=== PATIENT | male | born 1985 | race Caucasian/White ===

== ENCOUNTER 2023-04-03 16:57 | Inpatient (IN) ==
[2023-04-03] MEDS ORDERED: fentaNYL citrate PF 100 MCG/2 ML VIAL IV STA (18:05)
[2023-04-03] MEDS ORDERED: SODIUM CHLORIDE 0.9% 1,000 ML IV ONE ×2 (18:05→21:46)
--- NOTE | 2023-04-03 18:08 | Emergency Department Note ---
Impression & Plan Acute right flank pain, Calculus of proximal right ureter, Hydronephrosis of right kidney ED Provider Note HISTORY OF PRESENT ILLNESS: Patient is a 38-year-old male presenting with right lower quadrant abdominal pain. History is obtained via [place] weld technician. 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 Describes the pain as constant and crampy pressure sensation. Denies any history of abdominal surgeries. Denies any nausea, vomiting or diarrhea. Pain is located in the right lower quadrant with radiation into the right low back. Denies any bowel or bladder incontinence. Denies any dysuria or hematuria. He denies any history of kidney stones. Denies any recent fevers. ROS: as above PHYSICAL EXAM: Constitutional: Patient appears in no acute distress. HENT: Head: Normocephalic and atraumatic. Eyes: EOMI, PERRL Mouth/Throat: Mucous membranes moist. Neck: Trachea midline. Neck supple. Cardiovascular: RRR, No murmurs, rubs or gallops. Intact distal pulses. Pulmonary/Chest: No respiratory distress. Breath sounds clear and equal bilaterally. No wheezes or rales. Abdominal: Abdomen soft, no tenderness, rebound or guarding. Musculoskeletal: No edema, tenderness or deformity noted. Skin: Warm and dry. No rash, erythema, pallor or cyanosis Psychiatric: Appropriate mood and affect for situation. Neurological: Alert and keenly responsive. CN II-XII grossly intact, moving all extremities equally and fully. MDM: - Vitals signs showed hypertension - History obtained via patient via [place] weld technician. Patient presents with right lower quadrant abdominal pain. Patient reports pain started acutely earlier this evening. He denies any history of abdominal surgeries. Locates pain in the right lower quadrant with radiation to the right low back. Reports is a constant crampy pressure sensation. Denies any nausea, vomiting or diarrhea. Denies any dysuria or hematuria. Denies any fevers. - Chronic conditions affecting care: none - Differential diagnoses include, but are not limited to: appendicitis; diverticulitis; testicular torsion; ureteral calculi - Order placed for continuous cardiac monitoring. At this time, monitor showed rate of 76 bpm with normal sinus rhythm, per my interpretation. - External medical records reviewed. - Laboratory workup interpreted by myself showed normal WBC; stable electrolytes; normal creatinine; normal lipase - CT abdomen/pelvis with IV contrast showed 7 mm right obstructing proximal ureteral stone with mild hydronephrosis. Noted to have nonobstructing right mid-pole stone. - Patient initially given 1L NS and 50 mcg IV fentanyl for pain control. He is still complaining of pain and is unable to void at this time. Given 4 mg IV morphine and an additional 1L NS. - On reassessment, patient is still complaining of pain. Will admit to hospitalist service for urology consultation in AM and pain management. - Discussion was had with adult care provider about patient's case and need for admission - Hospitalist consulted for admission - [facility] ASSESSMENT AND PLAN: Diagnosis: right flank pain; right ureteral calculus; right-sided hydronephrosis Plan: admit Past Med/Surg History Social History Smoking Status: Never smoker Preferred Language: Swiss Feels Safe at Home: Yes Allergies Allergies Allergy/AdvReac Type Severity Reaction Status Date / Time No Known Allergies Allergy Verified 04/03/23 18:34 Home Meds Home Medications Medication Instructions Recorded Confirmed No Known Home Medications 04/03/23 04/03/23 Results & Data (ED) Vital Signs Vital Signs - 24 hr 04/03/23 17:32 04/03/23 18:05 04/03/23 18:05 Temperature 36.5 C Temperature Source Temporal Artery Scan Pulse Rate 62 66 Pulse Rate [Apical] 63 Pulse Rate from SpO2 Sensor Respiratory Rate 16 18 Respiratory Effort / Characteristics Non-Labored Spontaneous Respiratory Depth Normal Normal Respiratory Pattern Regular Blood Pressure 148/83 H Blood Pressure [Right Arm] 141/90 H Blood Pressure Mean 104 Blood Pressure Mean [Right Arm] 107 Blood Pressure Position [Right Arm] Sitting Pulse Oximetry 98 98 Oxygen Delivery Method Room Air Room Air Sepsis Recent Fever Within 48 Hours No Sepsis New/Unexplained Change in Mental Status No Sepsis Action Taken by Nursing No Action Required 04/03/23 18:05 04/03/23 20:16 04/03/23 20:30 Temperature Temperature Source Pulse Rate 63 88 Pulse Rate [Apical] 96 H Pulse Rate from SpO2 Sensor Respiratory Rate 18 19 18 Respiratory Effort / Characteristics Respiratory Depth Respiratory Pattern Blood Pressure 140/81 Blood Pressure [Right Arm] 146/79 H Blood Pressure Mean 100 Blood Pressure Mean [Right Arm] 101 Blood Pressure Position [Right Arm] Pulse Oximetry 98 97 98 Oxygen Delivery Method Room Air Room Air Room Air Sepsis Recent Fever Within 48 Hours Sepsis New/Unexplained Change in Mental Status Sepsis Action Taken by Nursing 04/03/23 21:00 04/03/23 21:00 04/03/23 21:30 Temperature Temperature Source Pulse Rate 81 81 Pulse Rate [Apical] Pulse Rate from SpO2 Sensor Respiratory Rate 17 22 Respiratory Effort / Characteristics Respiratory Depth Respiratory Pattern Blood Pressure 141/75 H 141/75 H 139/78 Blood Pressure [Right Arm] Blood Pressure Mean 97 96 98 Blood Pressure Mean [Right Arm] Blood Pressure Position [Right Arm] Pulse Oximetry 98 99 Oxygen Delivery Method Room Air Room Air Sepsis Recent Fever Within 48 Hours Sepsis New/Unexplained Change in Mental Status Sepsis Action Taken by Nursing 04/03/23 22:00 04/03/23 22:00 Temperature Temperature Source Pulse Rate 76 Pulse Rate [Apical] Pulse Rate from SpO2 Sensor 76 Respiratory Rate 22 Respiratory Effort / Characteristics Respiratory Depth Respiratory Pattern Blood Pressure 138/82 Blood Pressure [Right Arm] Blood Pressure Mean 94 Blood Pressure Mean [Right Arm] Blood Pressure Position [Right Arm] Pulse Oximetry 97 Oxygen Delivery Method Sepsis Recent Fever Within 48 Hours Sepsis New/Unexplained Change in Mental Status Sepsis Action Taken by Nursing Laboratory Data 04/03/23 17:40 04/03/23 17:40 Lab Results 04/03/23 Range/Units 17:40 WBC 10.78 (4.8-10.8) K/ul RBC 5.47 (4.70-6.10) M/uL Hgb 16.8 (14.0-18.0) g/dl Hct 47.4 (42.0-52.0) % MCV 86.7 (80.0-100.0) fL MCH 30.7 (25.0-34.0) pg MCHC 35.4 (32.0-36.0) g/dL RDW Std Deviation 37.7 (36.4-46.3) fL RDW Coeff of Dusty 11.9 (11.5-14.5) % Plt Count 274 (130-400) K/uL MPV 9.8 (9.4-12.4) fL Immature Gran % (Auto) 0.4 % Neut % (Auto) 89.3 % Lymph % (Auto) 5.7 % [place] % (Auto) 4.0 % Eos % (Auto) 0.1 % Baso % (Auto) 0.5 % Neut # (Auto) 9.64 H (1.40-6.50) K/uL Lymph # (Auto) 0.61 L (1.20-3.40) K/uL [place] # (Auto) 0.43 (0.11-0.59) K/uL Eos # (Auto) 0.01 (0.00-0.50) K/uL Baso # (Auto) 0.05 (0.00-0.20) K/uL Immature Gran # (Auto) 0.04 (0.01-0.20) K/uL Sodium 138 (136-145) mmol/L Potassium 4.2 (3.5-5.1) mmol/L Chloride 103 (98-107) mmol/L Carbon Dioxide 25 (21-32) mmol/L Anion Gap 10 (3-11) BUN 19 (6-23) mg/dl Creatinine 1.20 (0.6-1.4) mg/dl Est Cr Clr Drug Dosing 106.4 ml/min Est GFR ( Amer) 89.6 ml/min Est GFR (Non-Af Amer) 77.3 ml/min BUN/Creatinine Ratio 15.8 (10-20) Glucose 132 H (70-99(Fasting)) mg/dl Calcium 10.3 (8.6-10.3) mg/dl Total Bilirubin 0.9 (0.2-1.0) mg/dl AST 22 (13-39) U/L ALT 15 (7-52) U/L Alkaline Phosphatase 45 (34-104) U/L Total Protein 8.1 (6.0-8.3) gm/dl Albumin 5.1 H (3.4-5.0) gm/dl Globulin 3.0 (2.5-4.0) gm/dl Albumin/Globulin Ratio 1.7 (0.9-2) Lipase 18 (11-82) U/L Administered Medications Sodium Chloride (Nss) 1,000 mls @ 999 mls/hr IV .Q1H1M ONE Stop: 04/03/23 22:46 Last Admin: 04/03/23 21:52 Dose: 999 mls/hr Documented By: DM Discontinued Medications Fentanyl Citrate (Fentanyl Citrate Pf 100 Mcg/2 Ml Vial) 50 mcg IV NOW STA Stop: 04/03/23 18:06 Last Admin: 04/03/23 18:25 Dose: 50 mcg Documented By: ANNABELLE Sodium Chloride (Nss) 1,000 mls @ 999 mls/hr IV .Q1H1M ONE Stop: 04/03/23 19:05 Last Infusion: 04/03/23 20:17 Dose: Infused Documented By: Admin: 04/03/23 18:25 Dose: 999 mls/hr Documented By: ANNABELLE Ioversol (Optiray 320 500ml) 86 ml IV ONCE ONE Stop: 04/03/23 20:04 Last Admin: 04/03/23 20:03 Dose: 86 ml Documented By: TELMA Morphine Sulfate (Morphine Sulfate 4 Mg/Ml 1 Ml Carp\Vial) 4 mg IV NOW STA Stop: 04/03/23 20:39 Last Admin: 04/03/23 20:43 Dose: 4 mg Documented By: CHANTEL Imaging Data Radiologist's Impression: Abdomen/Pelvis CT 04/03/23 18:05 Exam(s): CT ABDOMEN + PELVIS With Contrast IV Amt: 86ml optiray 320 EXAM: CT Abdomen and Pelvis With Intravenous Contrast CLINICAL HISTORY: Reason for exam: RLQ abdominal pain. TECHNIQUE: Axial computed tomography images of the abdomen and pelvis with intravenous contrast. CTDI is 16.65 mGy and DLP is 836.55 mGy-cm. Automated exposure control was utilized for the study. A dose lowering technique was utilized adhering to the principles of ALARA. CONTRAST: Patient received 86ml optiray 320 of IV contrast COMPARISON: No relevant prior studies available. FINDINGS: Lung bases: Unremarkable. No mass. No consolidation. ABDOMEN: Liver: Unremarkable. No mass. Gallbladder and bile ducts: Unremarkable. No calcified stones. No ductal dilation. Pancreas: Unremarkable. No mass. No ductal dilation. Spleen: Unremarkable. No splenomegaly. Adrenals: Unremarkable. No mass. Kidneys and ureters: Obstructing 7 mm RIGHT proximal ureter stone. Mild hydronephrosis of the RIGHT kidney. Nonobstructing 4 mm RIGHT mid pole renal stone. Stomach and bowel: Unremarkable. No obstruction. No mucosal thickening. PELVIS: Appendix: No findings to suggest acute appendicitis. Bladder: Decompressed urinary bladder. Reproductive: Unremarkable as visualized. ABDOMEN and PELVIS: Intraperitoneal space: Unremarkable. No free air. No significant fluid collection. Bones/joints: No acute fracture. No dislocation. Soft tissues: Unremarkable. Vasculature: Unremarkable. No abdominal aortic aneurysm. Lymph nodes: Unremarkable. No enlarged lymph nodes. IMPRESSION: 1. Obstructing 7 mm RIGHT proximal ureter stone. Mild hydronephrosis of the RIGHT kidney. 2. Nonobstructing 4 mm RIGHT mid pole renal stone. Electronically signed by: Milind Howell MD 04/03/23 20:46 PM Discharge Plan Visit Data Chief Complaint: Flank Pain Stated Complaint: rt BACK/FLANK PAIN INTO ABDOMEN ED Provider: Brittany Stanton Discharge Problem: Acute right flank pain, Calculus of proximal right ureter, Hydronephrosis of right kidney Forms Stand Alone Forms: My [facility] Medical Prescriptions Prescriptions: No Action No Known Home Medications Referrals Referrals: PCP,NO [Physician] -
[2023-04-03 18:25] LABS: Basophils # (auto) 0.05 K/uL (0.00-0.20); Basophils % (auto) 0.5 %; Eosinophils # (auto) 0.01 K/uL (0.00-0.50); Eosinophils % (auto) 0.1 %; Hematocrit (blood only) 47.4 % (42.0-52.0); Hemoglobin 16.8 g/dl (14.0-18.0); Immature Granulocytes # (auto) 0.04 K/uL (0.01-0.20); Immature Granulocytes % (auto) 0.4 %; Lymphocytes # (auto) 0.61 K/uL (1.20-3.40); Lymphocytes % (auto) 5.7 %; Mean Corpuscular Hemoglobin 30.7 pg (25.0-34.0); Mean Corpuscular Hgb Conc 35.4 g/dL (32.0-36.0); Mean Corpuscular Volume 86.7 fL (80.0-100.0); Mean Platelet Volume 9.8 fL (9.4-12.4); Monocytes # (auto) 0.43 K/uL (0.11-0.59); Neutrophils # (auto) 9.64 K/uL (1.40-6.50); Neutrophils % (auto) 89.3 %; Platelet Count 274 K/uL (130-400); RDW Coefficient of Variation 11.9 % (11.5-14.5); RDW Standard Deviation 37.7 fL (36.4-46.3); Red Blood Count 5.47 M/uL (4.70-6.10); White Blood Count 10.78 K/ul (4.8-10.8)
[2023-04-03 18:35] LABS: Albumin Globulin Ratio 1.7 (0.9-2); Albumin Level 5.1 gm/dl (3.4-5.0); BUN Creatinine Ratio 15.8 (10-20); Bilirubin,Total 0.9 mg/dl (0.2-1.0); Calcium 10.3 mg/dl (8.6-10.3); Creatinine Clr Calc Pharmacy 106.4 ml/min; Est GFR (African American) 89.6 ml/min; Est GFR (Non-African American) 77.3 ml/min; Potassium 4.2 mmol/L (3.5-5.1); Total Protein 8.1 gm/dl (6.0-8.3)
[2023-04-03] MEDS ORDERED: OPTIRAY 320 500ml IV ONE (20:03)
[2023-04-03] MEDS ORDERED: MoRPHine SULFATE 4 MG/ML 1 ML CARP\\VIAL IV STA (20:38)
--- NOTE | 2023-04-03 20:47 | CT Scan Report ---
Exam(s): CT ABDOMEN + PELVIS With Contrast IV Amt: 86ml optiray 320 EXAM: CT Abdomen and Pelvis With Intravenous Contrast CLINICAL HISTORY: Reason for exam: RLQ abdominal pain. TECHNIQUE: Axial computed tomography images of the abdomen and pelvis with intravenous contrast. CTDI is 16.65 mGy and DLP is 836.55 mGy-cm. Automated exposure control was utilized for the study. A dose lowering technique was utilized adhering to the principles of ALARA. CONTRAST: Patient received 86ml optiray 320 of IV contrast COMPARISON: No relevant prior studies available. FINDINGS: Lung bases: Unremarkable. No mass. No consolidation. ABDOMEN: Liver: Unremarkable. No mass. Gallbladder and bile ducts: Unremarkable. No calcified stones. No ductal dilation. Pancreas: Unremarkable. No mass. No ductal dilation. Spleen: Unremarkable. No splenomegaly. Adrenals: Unremarkable. No mass. Kidneys and ureters: Obstructing 7 mm RIGHT proximal ureter stone. Mild hydronephrosis of the RIGHT kidney. Nonobstructing 4 mm RIGHT mid pole renal stone. Stomach and bowel: Unremarkable. No obstruction. No mucosal thickening. PELVIS: Appendix: No findings to suggest acute appendicitis. Bladder: Decompressed urinary bladder. Reproductive: Unremarkable as visualized. ABDOMEN and PELVIS: Intraperitoneal space: Unremarkable. No free air. No significant fluid collection. Bones/joints: No acute fracture. No dislocation. Soft tissues: Unremarkable. Vasculature: Unremarkable. No abdominal aortic aneurysm. Lymph nodes: Unremarkable. No enlarged lymph nodes. IMPRESSION: 1. Obstructing 7 mm RIGHT proximal ureter stone. Mild hydronephrosis of the RIGHT kidney. 2. Nonobstructing 4 mm RIGHT mid pole renal stone. Electronically signed by: Milind Howell MD 04/03/23 20:46 PM
[2023-04-03] MEDS ORDERED: HYDROmorphone INJ 0.5 MG/0.5 ML SYR IV STA (22:55)
[2023-04-03 23:21] LABS: Appearance Urine Clear (Clear); Bacteria Urine Automated Negative (Negative); Bilirubin Urine Negative (Negative); Blood Urine 3+ (Negative); Color Urine Yellow; Glucose Urine UA Negative (Negative); Ketones Urine 2+ (Negative); Leukocyte Esterase Urine Negative (Negative); Nitrite Urine Negative (Negative); Protein Urine Trace (Negative); RBC Urine Automated >30 /hpf (0-4); Specific Gravity Urine > 1.045 (1.000-1.030); Urobilinogen Urine Negative (Negative)
--- NOTE | 2023-04-03 23:32 | History & Physical Report ---
Date of Service April 03, 2023 Assessment & Plan (1) Calculus of proximal right ureter: Plan: 38-year-old male no significant past medical history [place] Islander speaking have to use medicare coordinator comes because of right sided abdominal pain started 1 PM today and found to have a 7 mm right ureteral stone. Right renal colic CT scan showing Obstructing 7 mm RIGHT proximal ureter stone. Mild hydronephrosis of the RIGHT kidney. 2. Nonobstructing 4 mm RIGHT mid pole renal stone. Pain control N.p.o. IV fluids flomax Consult urology in a.m. DVT prophylaxis SCDs Disposition medical floor Full code History of Present Illness Chief Complaint: Right renal colic Primary Care Provider: ALONDRA LEDESMA 38-year-old male with no significant past medical history [place] speaking have to use medicare coordinator comes because of right sided abdominal pain started 1 PM today and found to have a 7 mm right ureteral stone. Patient states pain is severe,in umbilical region radiating to right side. Associate with nausea. Did not move his bowels last 2 days. Normal micturition. Denies any blood in the urine or burning sensation. No fevers. No chest pain or shortness of breath. No cough. No runny nose. No headaches. Hemodynamically stable. Past medical history. None Past surgical history.Surgery for left testicular abnormal vein. Social history. Denies smoking. Alcohol occasional. No drug use. Family history. Hypertension and cancer in the family. Allergies Allergy/AdvReac Type Severity Reaction Status Date / Time No Known Allergies Allergy Verified 04/03/23 18:34 Home Medications Medication Instructions Recorded Confirmed Type No Known Home Medications 04/03/23 04/03/23 History Past Med/Surg History Social History Smoking Status: Never smoker Hx Alcohol Use: Yes Alcohol type: beer Hx Substance Use: No Preferred Language: Ukranian Communication Ability: Effective Communication Tools: IPad Manager Legal Required: Yes Beliefs That Will Affect Care: None Current Living Situation: Spouse and Family Feels Safe at Home: Yes Safety Concerns: Feels Safe At This Time Review of Systems Review of Systems: All systems reviewed & are unremarkable except as noted in HPI & below Physical Exam Physical Exam: General- Not in distress Head- atraumatic Eyes- PERRL. ENT- oropharynx clear Neck- supple, no JVD. Lungs- clear to auscultation no wheezing or crackles. Heart- regular rhythm; no murmur, no gallop. Abdomen- normal bowel sounds, soft, nontender, no distension. Extremities- no pretibial edema, no erythema seen. Neuro- alert, oriented x 3; PERRL, no facial palsy; no dysarthria; moves extremities. Skin- warm & dry Results & Data Results & Data Vital Signs (Past 12 Hours) Vital Signs Temp Pulse Pulse Resp BP BP Pulse Ox 04/03/23 23:00 78 12 118/68 100 04/03/23 22:30 85 17 144/87 H 98 04/03/23 22:19 82 04/03/23 22:00 76 22 97 04/03/23 22:00 138/82 04/03/23 21:30 81 22 139/78 99 04/03/23 21:00 141/75 H 04/03/23 21:00 81 17 141/75 H 98 04/03/23 20:30 88 18 140/81 98 04/03/23 20:16 96 H 19 146/79 H 97 04/03/23 18:05 63 18 98 04/03/23 18:05 63 18 141/90 H 98 04/03/23 18:05 66 04/03/23 17:32 36.5 C 62 16 148/83 H 98 O2 Del Method 04/03/23 23:00 Room Air 04/03/23 22:30 Room Air 04/03/23 22:19 04/03/23 22:00 04/03/23 22:00 04/03/23 21:30 Room Air 04/03/23 21:00 04/03/23 21:00 Room Air 04/03/23 20:30 Room Air 04/03/23 20:16 Room Air 04/03/23 18:05 Room Air 04/03/23 18:05 Room Air 04/03/23 18:05 04/03/23 17:32 Room Air Diagnostic Findings Laboratory Results WBC 10.78 K/ul (4.8-10.8) 04/03/23 17:40 RBC 5.47 M/uL (4.70-6.10) 04/03/23 17:40 Hgb 16.8 g/dl (14.0-18.0) 04/03/23 17:40 Hct 47.4 % (42.0-52.0) 04/03/23 17:40 MCV 86.7 fL (80.0-100.0) 04/03/23 17:40 MCH 30.7 pg (25.0-34.0) 04/03/23 17:40 MCHC 35.4 g/dL (32.0-36.0) 04/03/23 17:40 RDW Std Deviation 37.7 fL (36.4-46.3) 04/03/23 17:40 RDW Coeff of Dusty 11.9 % (11.5-14.5) 04/03/23 17:40 Plt Count 274 K/uL (130-400) 04/03/23 17:40 MPV 9.8 fL (9.4-12.4) 04/03/23 17:40 Immature Gran % (Auto) 0.4 % 04/03/23 17:40 Neut % (Auto) 89.3 % 04/03/23 17:40 Lymph % (Auto) 5.7 % 04/03/23 17:40 [place] % (Auto) 4.0 % 04/03/23 17:40 Eos % (Auto) 0.1 % 04/03/23 17:40 Baso % (Auto) 0.5 % 04/03/23 17:40 Neut # (Auto) 9.64 K/uL (1.40-6.50) H 04/03/23 17:40 Lymph # (Auto) 0.61 K/uL (1.20-3.40) L 04/03/23 17:40 [place] # (Auto) 0.43 K/uL (0.11-0.59) 04/03/23 17:40 Eos # (Auto) 0.01 K/uL (0.00-0.50) 04/03/23 17:40 Baso # (Auto) 0.05 K/uL (0.00-0.20) 04/03/23 17:40 Immature Gran # (Auto) 0.04 K/uL (0.01-0.20) 04/03/23 17:40 Sodium 138 mmol/L (136-145) 04/03/23 17:40 Potassium 4.2 mmol/L (3.5-5.1) 04/03/23 17:40 Chloride 103 mmol/L (98-107) 04/03/23 17:40 Carbon Dioxide 25 mmol/L (21-32) 04/03/23 17:40 Anion Gap 10 (3-11) 04/03/23 17:40 BUN 19 mg/dl (6-23) 04/03/23 17:40 Creatinine 1.20 mg/dl (0.6-1.4) 04/03/23 17:40 Est Cr Clr Drug Dosing 106.4 ml/min 04/03/23 17:40 Est GFR ( Amer) 89.6 ml/min 04/03/23 17:40 Est GFR (Non-Af Amer) 77.3 ml/min 04/03/23 17:40 BUN/Creatinine Ratio 15.8 (10-20) 04/03/23 17:40 Glucose 132 mg/dl (70-99(Fasting)) H 04/03/23 17:40 Calcium 10.3 mg/dl (8.6-10.3) 04/03/23 17:40 Total Bilirubin 0.9 mg/dl (0.2-1.0) 04/03/23 17:40 AST 22 U/L (13-39) 04/03/23 17:40 ALT 15 U/L (7-52) 04/03/23 17:40 Alkaline Phosphatase 45 U/L (34-104) 04/03/23 17:40 Total Protein 8.1 gm/dl (6.0-8.3) 04/03/23 17:40 Albumin 5.1 gm/dl (3.4-5.0) H 04/03/23 17:40 Globulin 3.0 gm/dl (2.5-4.0) 04/03/23 17:40 Albumin/Globulin Ratio 1.7 (0.9-2) 04/03/23 17:40 Lipase 18 U/L (11-82) 04/03/23 17:40 Urine Color Yellow 04/03/23 22:45 Urine Appearance Clear (Clear) 04/03/23 22:45 Urine pH 6.0 (4.5-7.5) 04/03/23 22:45 Ur Specific [place] > 1.045 (1.000-1.030) H 04/03/23 22:45 Urine Protein Trace (Negative) H 04/03/23 22:45 Urine Glucose (UA) Negative (Negative) 04/03/23 22:45 Urine Ketones 2+ (Negative) H 04/03/23 22:45 Urine Blood 3+ (Negative) H 04/03/23 22:45 Urine Nitrite Negative (Negative) 04/03/23 22:45 Urine Bilirubin Negative (Negative) 04/03/23 22:45 Urine Urobilinogen Negative (Negative) 04/03/23 22:45 Ur Leukocyte Esterase Negative (Negative) 04/03/23 22:45 Urine WBC (Auto) 1-5 /hpf (0-5) 04/03/23 22:45 Urine RBC (Auto) >30 /hpf (0-4) H 04/03/23 22:45 U Hyaline Cast (Auto) 1-5 /lpf (0-5) 04/03/23 22:45 U Epithel Cells (Auto) 5-10 /lpf (0-5) H 04/03/23 22:45 Urine Bacteria (Auto) Negative (Negative) 04/03/23 22:45 Impressions Abdomen/Pelvis CT 04/03/23 18:05 Exam(s): CT ABDOMEN + PELVIS With Contrast IV Amt: 86ml optiray 320 EXAM: CT Abdomen and Pelvis With Intravenous Contrast CLINICAL HISTORY: Reason for exam: RLQ abdominal pain. TECHNIQUE: Axial computed tomography images of the abdomen and pelvis with intravenous contrast. CTDI is 16.65 mGy and DLP is 836.55 mGy-cm. Automated exposure control was utilized for the study. A dose lowering technique was utilized adhering to the principles of ALARA. CONTRAST: Patient received 86ml optiray 320 of IV contrast COMPARISON: No relevant prior studies available. FINDINGS: Lung bases: Unremarkable. No mass. No consolidation. ABDOMEN: Liver: Unremarkable. No mass. Gallbladder and bile ducts: Unremarkable. No calcified stones. No ductal dilation. Pancreas: Unremarkable. No mass. No ductal dilation. Spleen: Unremarkable. No splenomegaly. Adrenals: Unremarkable. No mass. Kidneys and ureters: Obstructing 7 mm RIGHT proximal ureter stone. Mild hydronephrosis of the RIGHT kidney. Nonobstructing 4 mm RIGHT mid pole renal stone. Stomach and bowel: Unremarkable. No obstruction. No mucosal thickening. PELVIS: Appendix: No findings to suggest acute appendicitis. Bladder: Decompressed urinary bladder. Reproductive: Unremarkable as visualized. ABDOMEN and PELVIS: Intraperitoneal space: Unremarkable. No free air. No significant fluid collection. Bones/joints: No acute fracture. No dislocation. Soft tissues: Unremarkable. Vasculature: Unremarkable. No abdominal aortic aneurysm. Lymph nodes: Unremarkable. No enlarged lymph nodes. IMPRESSION: 1. Obstructing 7 mm RIGHT proximal ureter stone. Mild hydronephrosis of the RIGHT kidney. 2. Nonobstructing 4 mm RIGHT mid pole renal stone. Electronically signed by: Milind Howell MD 04/03/23 20:46 PM Code Status & VTE Plan VTE Prophylaxis Plan VTE Prophylaxis will be ordered: Yes
[2023-04-04] MEDS ORDERED: HYDROmorphone INJ 0.5 MG/0.5 ML SYR IV PRN (01:21)
[2023-04-04] MEDS ORDERED: ACETAMINOPHEN 325 MG TAB PO PRN (01:21)
[2023-04-04] MEDS ORDERED: TAMSULOSIN HCL 0.4 MG CAP PO ONE (01:21)
[2023-04-04] MEDS ORDERED: ONDANSETRON INJ 2 MG/ML 2 ML VIAL IV PRN ×2 (01:21→18:24)
[2023-04-04] MEDS: SODIUM CHLORIDE 0.9% 1,000 ML IV SCH ×4 (01:33→20:00)
[2023-04-04] MEDS: KETOROLAC TROMETHAMINE 15 MG/ML VIAL IV PRN ×2 (02:07→13:08)
[2023-04-04] MEDS: TAMSULOSIN HCL 0.4 MG CAP PO SCH (07:31)
[2023-04-04 12:15] LABS: Basophils # (auto) 0.06 K/uL (0.00-0.20); Basophils % (auto) 0.7 %; Eosinophils # (auto) 0.04 K/uL (0.00-0.50); Eosinophils % (auto) 0.5 %; Hematocrit (blood only) 43.9 % (42.0-52.0); Hemoglobin 14.6 g/dl (14.0-18.0); Immature Granulocytes # (auto) 0.03 K/uL (0.01-0.20); Immature Granulocytes % (auto) 0.3 %; Lymphocytes # (auto) 1.28 K/uL (1.20-3.40); Lymphocytes % (auto) 14.7 %; Mean Corpuscular Hemoglobin 30.2 pg (25.0-34.0); Mean Corpuscular Hgb Conc 33.3 g/dL (32.0-36.0); Mean Corpuscular Volume 90.9 fL (80.0-100.0); Mean Platelet Volume 9.4 fL (9.4-12.4); Monocytes # (auto) 0.94 K/uL (0.11-0.59); Monocytes % (auto) 10.8 %; Neutrophils # (auto) 6.33 K/uL (1.40-6.50); Platelet Count 219 K/uL (130-400); RDW Standard Deviation 40.1 fL (36.4-46.3); Red Blood Count 4.83 M/uL (4.70-6.10); White Blood Count 8.68 K/ul (4.8-10.8)
[2023-04-04 12:34] LABS: Albumin Globulin Ratio 1.6 (0.9-2); Bilirubin,Total 1.3 mg/dl (0.2-1.0); Calcium 9.1 mg/dl (8.6-10.3); Creatinine Clr Calc Pharmacy 103.8 ml/min; Est GFR (Non-African American) 75.1 ml/min; Globulin 2.5 gm/dl (2.5-4.0); Magnesium 1.9 mg/dl (1.7-2.4); Phosphorus 3.7 mg/dl (2.5-4.9); Potassium 4.4 mmol/L (3.5-5.1); Total Protein 6.5 gm/dl (6.0-8.3)
--- NOTE | 2023-04-04 15:31 | Hospitalist Progress Note ---
Date of Service April 04, 2023 Assessment & Plan (1) Calculus of proximal right ureter: (2) Hydronephrosis of right kidney: (3) Obstructive uropathy: Plan Pt is a 38-year-old male with no significant past medical history admitted with R obstructive uropathy. R Obstructive Nephropathy Nephrolithiasis CT noting 7mm R obstructing ureteral stone with hydronephrosis UA not concerning for infection Pt eventually agreeable to stent placement Urology consulted-appreciate recs Pain control Diet: NPO in anticipation of procedure DVT prophylaxis: SCDs in anticipation of surgery CODE STATUS: Full code Disposition: anticipate d/c after procedure Admission and Anticipated Discharge Date Admission Date: April 03, 2023 Subjective Pt seen multiple times during the day. 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 States that he parked his truck and came to the ED to be evaluated further when he felt the pain. Initially, wanted this provider to communicate with his friend who spoke both ukranian and Serbian. Friend advised pt that he needed lithotripsy and not stent placement. Pt initially adamant that he did not want stent placement and wanted to be able to drive back to [place] where he could get that done. Later, in the day using the [facility] slab grinder via IPAD for Ukranian, explained that cannot in good rusty give narcotics for the pain knowing that he will be driving home. Explained that the stent will help with the pain and getting him home to [place] where he can follow up for lithotripsy and further care. Pt was then agreeable after multiple questions and Urology was notified. Physical Exam Physical Exam: General: Alert, oriented. No acute distress during the exam Skin: No noted rashes or bruises Psych: Appropriate mood and affect Neuro: No gross deficits while laying or sitting in bed HEENT: NC/AT Chest: Nontender to palpation. CV: RRR Resp: Breath sounds clear bilaterally Abdomen:soft, nontender, nondistended Extremities: No edema in lower extremities bilaterally. Results & Data Results & Data Vital Signs (Past 12 Hours) Vital Signs Temp Pulse Resp BP Pulse Ox O2 Del Method 04/04/23 08:00 Room Air 04/04/23 07:39 37 C 64 14 111/69 98 Room Air
--- NOTE | 2023-04-04 15:43 | Urology Consultation ---
Date of Consultation April 04, 2023 Assessment & Plan (1) Hydronephrosis of right kidney: (2) Calculus of proximal right ureter: (3) Acute right flank pain: Plan 38-year-old male who is Citizen Of [place] speaking admitted with right abdominal/ flank pain secondary to an obstructing 7mm proximal right ureteral stone. -Afebrile and hemodynamically stable. -Labs reviewed-WBC 8.68, creatinine 1.23. -Urinalysis on arrival not suggestive of infection. -Voiding spontaneously, continue to monitor. -Patient is Citizen Of [place] speaking, show girl iPad used. We discussed his options for acute stone management with cystoscopy and stent placement. Ureteral stents were discussed as well as postoperative issues and pain management. He is aware a second procedure would be needed for stone treatment in the future. Risks and benefits were discussed. All questions were answered. -Patient would like to consider options and discuss with family/friend. -Keep NPO for now. Will reassess later this morning. -Continue supportive care and pain management. -Urology will follow. -Patient reassessed. -Discussed again with patient and friend (Shara via telephone) options for acute stone management with cystoscopy and stent placement. We discussed that we would not treat the stone today and would only be placing the stent for acute pain management. Discussed that a second procedure would be needed for stone treatment. -Patient declined stent placement. He would prefer to try passing the stone on his own. He also prefers only one procedure for stone treatment if possible. Stone passage rates given size and location were discussed. Again discussed that we could offer stent placement today, however we would not treat the stone. -Patient declined stent placement and therefore no plan for urological intervention at this time. -Continue supportive care and pain management as needed. -Discussed with hospitalist. -Urology will follow peripherally. Please contact any further questions or concerns. Plan of care reviewed with Dr. Torre Supervising Physician Co-Signing Physician Notes Patient changed his mind and would like to proceed with stent. Consent was obtained using iPad engine installer. Patient was marked. All question is answered. Plan to go to the OR for cystoscopy, right retrograde pyelogram and right ureteral stent History of Present Illness Attending Physician: Gabriela Durán MD History of Present Illness 38-year-old male who presented to the ED on 04/03/2023 with right lower quadrant abdominal pain. 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 On arrival he was afebrile and hemodynamically stable. Labs showing no leukocytosis and normal renal function. CT abdomen pelvis obtained and notable for a 7 mm right obstructing proximal ureteral stone with mild hydronephrosis. Urinalysis with 3+ blood, negative nitrite, negative LE, negative bacteria. ED course: IV fluids, fentanyl, morphine, Dilaudid. Patient admitted to medicine service for continued care and pain management. Patient examined at bedside this a.m. Awake, resting bed on arrival. No acute distress. Has been NPO. Pt is Citizen Of [place] speaking. Calciner Operator iPad used. Has been managing pain with IV pain medication. Reports he is urinating without issue. Denied blood or burning. Denied fever, chills, nausea, vomiting at present. Denied prior history of stones. Allergies Allergy/AdvReac Type Severity Reaction Status Date / Time No Known Allergies Allergy Verified 04/03/23 18:34 Home Medications Medication Instructions Recorded Confirmed Type No Known Home Medications 04/03/23 04/03/23 History Patient History Social History Smoking Status: Never smoker Hx Alcohol Use: Yes Alcohol type: beer Hx Substance Use: No Preferred Language: Ukranian Communication Ability: Effective Communication Tools: IPad Sed High School Teacher Required: Yes Beliefs That Will Affect Care: None Current Living Situation: Spouse and Family Feels Safe at Home: Yes Safety Concerns: Feels Safe At This Time Assistive Devices: None Review of Systems Review of Systems: All systems reviewed & are unremarkable except as noted in HPI & below Physical Exam Constitutional: well developed and well nourished; no acute distress Respiratory: normal respiratory effort; no respiratory distress and no labored breathing Musculoskeletal: Head/Neck/Chest: normocephalic Skin: No visible rashes or lesions to exposed skin areas Neurologic: moves all extremities and awake Psychiatric: A+Ox3, euthymic affect Results & Data Vital Signs (Past 12 Hours) Vital Signs Temp Pulse Pulse Pulse Resp BP BP 04/04/23 08:00 04/04/23 07:39 37 C 64 14 111/69 04/04/23 03:18 36.9 C 64 16 129/74 04/04/23 02:30 81 16 125/69 04/04/23 02:00 77 18 121/82 04/04/23 01:35 72 13 124/74 04/04/23 00:30 73 18 126/66 04/03/23 23:30 74 20 132/81 04/03/23 23:00 78 12 118/68 04/03/23 22:30 85 17 144/87 H 04/03/23 22:19 82 04/03/23 22:00 76 22 04/03/23 22:00 138/82 04/03/23 21:30 81 22 139/78 Pulse Ox O2 Del Method 04/04/23 08:00 Room Air 04/04/23 07:39 98 Room Air 04/04/23 03:18 96 Room Air 04/04/23 02:30 94 04/04/23 02:00 94 04/04/23 01:35 96 Room Air 04/04/23 00:30 95 04/03/23 23:30 95 04/03/23 23:00 100 Room Air 04/03/23 22:30 98 Room Air 04/03/23 22:19 04/03/23 22:00 97 04/03/23 22:00 04/03/23 21:30 99 Room Air PG Care Time/CCT Total # of Minutes Spent Total Time Spent with Patient: Total time spent is greater than 50% in coordination of care (as documented) at patient's floor/unit and/or counseling patient: Coding Level of Care Code 36171 IN/OBS CONSULT LVL 4,60M Diagnoses Hydronephrosis of right kidney N13.30 Calculus of proximal right ureter N20.1 Acute right flank pain R10.9
[2023-04-04] MEDS ORDERED: LIDOCAINE 2% 2 ML VIAL/AMP(20MG/ML) INFIL ONE (17:36)
[2023-04-04] MEDS ORDERED: PROPOFOL IV EMULSION 10 MG/ML 20 ML VIAL IV ONE (17:36)
[2023-04-04] MEDS ORDERED: MIDAZOLAM HCL 1 MG/ML 2ML VIAL ONE (17:37)
[2023-04-04] MEDS ORDERED: fentaNYL citrate PF 100 MCG/2 ML VIAL ONE (17:37)
[2023-04-04] MEDS ORDERED: ceFAZolin 2000MG 2,000 MG/15 ML SYR IV ONE (18:09)
[2023-04-04] MEDS ORDERED: ATROPINE SULFATE 0.1 MG/ML 10ML SYR IV PRN (18:24)
[2023-04-04] MEDS ORDERED: fentaNYL citrate PF 100 MCG/2 ML VIAL IV PRN (18:24)
[2023-04-04] MEDS ORDERED: ePHEDrine sulfate 50 MG/ML AMP IV PRN (18:24)
[2023-04-04] MEDS ORDERED: HYDROmorphone INJ 2 MG/ML SYR/VIAL IV PRN (18:24)
--- NOTE | 2023-04-04 18:24 | Anesthesiology Consultation ---
Date of Service April 04, 2023 Assessment & Plan ASA ASA1 Proposed Anesthesia Anesthesia Type: MAC Risk / Benefits Reviewed With: PT / POA / Parent / Guardian, Accepts Plan and Informed Consent Obtained History Surgery Operation Date: 04/04/23 18:30 Proposed Procedures p Cystoscopy(Right) - Jonathan Torre MD Height/Weight Height: 6 ft 5 in Weight: 88.4 kg Allergies Allergy/AdvReac Type Severity Reaction Status Date / Time No Known Allergies Allergy Verified 04/03/23 18:34 Medications Home Medications Medication Instructions Recorded Confirmed Last Taken No Known Home Medications 04/03/23 04/03/23 Unknown Active Medications Generic Name Dose Route Start Last Admin Trade Name Freq PRN Reason Stop Dose Admin Hydromorphone HCl 0.5 mg 04/04/23 01:21 04/04/23 11:04 Hydromorphone Inj 0.5 Mg/0.5 Ml Syr IV 04/18/23 01:20 0.5 mg Q3H PRN Administration Pain Sodium Chloride 1,000 mls @ 125 mls/hr 04/04/23 01:21 04/04/23 18:06 Nss IV 05/04/23 01:20 Infused .Q8H JOSE Infusion Ketorolac Tromethamine 15 mg 04/04/23 01:21 04/04/23 13:08 Ketorolac Tromethamine 15 Mg/Ml Vial IV 04/09/23 01:20 15 mg Q6H PRN Administration Pain Tamsulosin HCl 0.4 mg 04/04/23 09:00 04/04/23 07:31 Tamsulosin Hcl 0.4 Mg Cap PO 05/04/23 08:59 0.4 mg QAM JOSE Administration NPO Date Last Intake of Fluids: 04/03/23 Time Last Intake of Fluids: 22:00 Date Last Intake of Solids: 04/03/23 Time Last Intake of Solids: 22:00 Exercise / Class Metabolic Activity II 4-5 Yardwork/Stairs/Walk up hill Past Anesthesia History No Hx of Anesthesia Complications and No Family Hx of Anesthesia Complications History of PONV No Hx of PONV and No Hx of Motion Sickness Social History Smoking Status: Never smoker Hx Alcohol Use: Yes Alcohol type: beer alcohol intake frequency: a few times a month Hx Substance Use: No Review of Systems denies fever/cough/ colds/ chest pain/ SOB/ LEXY denies LEXY Physical Exam Vital Signs Last Vital Signs Temp 37.2 C 04/04/23 18:05 Pulse 79 04/04/23 18:05 Resp 21 04/04/23 18:05 BP 153/92 H 04/04/23 18:05 Pulse Ox 98 04/04/23 18:05 O2 Del Method Room Air 04/04/23 18:05 ENMT Mouth: no TMJ abnormality and no dentition abnormality Thyromental Distance: > or= 3.5 Finger Breadths Mallampati Class: II Neck neck extension not limited Respiratory normal respiratory effort; no respiratory distress Auscultation: lungs clear to auscultation bilaterally Cardiovascular Rate/Rhythm: regular rate and regular rhythm Neurologic moves all extremities Psychiatric Orientation: alert and oriented x 3 Testing Laboratory Results 04/04/23 11:47 04/04/23 11:47 Urine Color Yellow 04/03/23 22:45 Urine Appearance Clear (Clear) 04/03/23 22:45 Urine pH 6.0 (4.5-7.5) 04/03/23 22:45 Ur Specific Hanson > 1.045 (1.000-1.030) H 04/03/23 22:45 Urine Protein Trace (Negative) H 04/03/23 22:45 Urine Glucose (UA) Negative (Negative) 04/03/23 22:45 Urine Ketones 2+ (Negative) H 04/03/23 22:45 Urine Nitrite Negative (Negative) 04/03/23 22:45 Ur Leukocyte Esterase Negative (Negative) 04/03/23 22:45 Urine WBC (Auto) 1-5 /hpf (0-5) 04/03/23 22:45 Urine RBC (Auto) >30 /hpf (0-4) H 04/03/23 22:45 U Hyaline Cast (Auto) 1-5 /lpf (0-5) 04/03/23 22:45 U Epithel Cells (Auto) 5-10 /lpf (0-5) H 04/03/23 22:45 Urine Bacteria (Auto) Negative (Negative) 04/03/23 22:45
[2023-04-04] MEDS ORDERED: DIATRIZOATE MEGLUMINE 30% 100ML VIAL INSTIL ONE (18:33)
--- NOTE | 2023-04-04 18:35 | Operative Report ---
PG Post Operative Report Pre & Post Diagnosis Right urolithiasis Operation Date: 04/04/23 18:30 <No data on this case meets the specified criteria> Right urolithiasis I identified the patient and participated in the time-out.: Yes Procedure Cystoscopy, right retrograde pyelogram with radiographic interpretation, right ureteral stent placement Operation Date: 04/04/23 18:30 <No data on this case meets the specified criteria> Surgeon Jonathan Torre MD Absorber Operator None Estimated Blood Loss 0 Findings Consistent with Post-Op Diagnosis Specimens None Drains 6 [place] by 28 cm right ureteral stent Anesthesia Type MAC Complications none Indications 38-year-old male with a right proximal ureteral calculus. 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 Consent was obtained via iPad site interpreter as patient speaks Nicaraguan. Description of Procedure After informed consent was obtained, the patient was transported operative suite. MAC anesthesia was induced. The patient was placed in dorsolithotomy position prepped and draped in a sterile fashion. They received preoperative Ancef for antibiotic prophylaxis. An appropriate surgical timeout was performed. A 22 [place] rigid scope was inserted per urethra into the bladder. Atkinson cystoscopy revealed no stones or lesions. I turned my attention the right ureteral orifice and intubated this with a 5 [place] open-ended catheter. A right retrograde pyelogram was shot which showed mild hydronephrosis. A sensor wire was advanced into the kidney and confirmed fluoroscopically. A 6 [place] by 28 cm right ureteral stent was deployed with a good proximal coil in the renal pelvis and a good distal coil noted in the bladder, confirmed fluoroscopically and under direct visualization, respectively. The bladder was emptied and the scope was removed. This concluded the end of the case. All counts were correct at the end of the case. I was present, scrubbed, and actively participated for the entirety of the procedure. I attest to the content of the Intraoperative Record and any orders documented therein. Any exceptions are noted below.
--- NOTE | 2023-04-04 18:45 | Fluoroscopy Report ---
FL retrograde includes kub CLINICAL HISTORY: STENT IN RT SIDEright-sided hydronephrosis COMPARISON STUDY: CT 04/03/2023 FLUOROSCOPY TIME: 7.8 seconds FLUOROSCOPY IMAGES: 3 EXPOSURE DOSE: Not reported mGy FINDINGS: Proximal portion of a right ureteral stent is in satisfactory positioning. Mild persistent hydronephrosis. IMPRESSION: Fluoroscopic assistance as above. ACT 112: Negative or not required by law. Electronically signed by: Darian Kennedy M.D. 04/04/2023 6:44 PM
--- NOTE | 2023-04-04 19:11 | Anesthesiology Progress Note ---
Date of Service April 04, 2023 Anesthesia Post Procedure Vital Signs Vital Signs: Temp Pulse Pulse Pulse Resp BP BP 04/04/23 19:05 36.7 C 64 14 125/76 04/04/23 18:55 67 17 121/78 04/04/23 18:45 37.1 C 89 12 138/89 04/04/23 18:05 37.2 C 79 21 153/92 H 04/04/23 16:07 36.3 C L 71 16 130/80 04/04/23 08:00 04/04/23 07:39 37 C 64 14 111/69 04/04/23 03:18 36.9 C 64 16 129/74 04/04/23 02:30 81 16 125/69 04/04/23 02:00 77 18 121/82 04/04/23 01:35 72 13 124/74 04/04/23 00:30 73 18 126/66 04/03/23 23:30 74 20 132/81 04/03/23 23:00 78 12 118/68 04/03/23 22:30 85 17 144/87 H 04/03/23 22:19 82 04/03/23 22:00 76 22 04/03/23 22:00 138/82 04/03/23 21:30 81 22 139/78 04/03/23 21:00 141/75 H 04/03/23 21:00 81 17 141/75 H 04/03/23 20:30 88 18 140/81 04/03/23 20:16 96 H 19 146/79 H Pulse Ox O2 Del Method 04/04/23 19:05 99 Room Air 04/04/23 18:55 98 Room Air 04/04/23 18:45 97 Room Air 04/04/23 18:05 98 Room Air 04/04/23 16:07 10 L Room Air 04/04/23 08:00 Room Air 04/04/23 07:39 98 Room Air 04/04/23 03:18 96 Room Air 04/04/23 02:30 94 04/04/23 02:00 94 04/04/23 01:35 96 Room Air 04/04/23 00:30 95 04/03/23 23:30 95 04/03/23 23:00 100 Room Air 04/03/23 22:30 98 Room Air 04/03/23 22:19 04/03/23 22:00 97 04/03/23 22:00 04/03/23 21:30 99 Room Air 04/03/23 21:00 04/03/23 21:00 98 Room Air 04/03/23 20:30 98 Room Air 04/03/23 20:16 97 Room Air Pain Intensity Right Flank: Pain Intensity: 2 Transfer of Care Handoff Completed per policy Notes Mental Status: alert / awake / arousable and participated in evaluation Patient Amnestic to Procedure: Yes Nausea / Vomiting: adequately controlled Pain: adequately controlled Airway Patency, RR, SpO2: stable & adequate BP & HR: stable & adequate Hydration State: stable & adequate Anesthetic Complications: no major complications apparent and Pt Satisfied with anesthetic care
[2023-04-05] MEDS: SODIUM CHLORIDE 0.9% 1,000 ML IV SCH ×2 (02:01→04:00)
[2023-04-05 06:08] LABS: Basophils # (auto) 0.07 K/uL (0.00-0.20); Eosinophils # (auto) 0.12 K/uL (0.00-0.50); Eosinophils % (auto) 1.7 %; Hematocrit (blood only) 37.5 % (42.0-52.0); Hemoglobin 12.8 g/dl (14.0-18.0); Immature Granulocytes # (auto) 0.03 K/uL (0.01-0.20); Immature Granulocytes % (auto) 0.4 %; Lymphocytes # (auto) 2.47 K/uL (1.20-3.40); Lymphocytes % (auto) 34.9 %; Mean Corpuscular Hemoglobin 30.5 pg (25.0-34.0); Mean Corpuscular Hgb Conc 34.1 g/dL (32.0-36.0); Mean Corpuscular Volume 89.3 fL (80.0-100.0); Mean Platelet Volume 9.6 fL (9.4-12.4); Monocytes # (auto) 0.97 K/uL (0.11-0.59); Monocytes % (auto) 13.7 %; Neutrophils # (auto) 3.41 K/uL (1.40-6.50); Neutrophils % (auto) 48.3 %; Platelet Count 208 K/uL (130-400); RDW Coefficient of Variation 12.2 % (11.5-14.5); RDW Standard Deviation 39.5 fL (36.4-46.3); White Blood Count 7.07 K/ul (4.8-10.8)
[2023-04-05 06:47] LABS: Albumin Globulin Ratio 1.8 (0.9-2); Albumin Level 3.5 gm/dl (3.4-5.0); BUN Creatinine Ratio 12.4 (10-20); Bilirubin,Total 1.3 mg/dl (0.2-1.0); Calcium 8.6 mg/dl (8.6-10.3); Creatinine Clr Calc Pharmacy 143.5 ml/min; Est GFR (African American) 127.5 ml/min; Magnesium 1.8 mg/dl (1.7-2.4); Phosphorus 3.5 mg/dl (2.5-4.9); Potassium 4.2 mmol/L (3.5-5.1); Total Protein 5.5 gm/dl (6.0-8.3)
[2023-04-05] MEDS: TAMSULOSIN HCL 0.4 MG CAP PO SCH (08:00)
--- NOTE | 2023-04-05 12:56 | Discharge Summary ---
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 Patient states pain is severe,in umbilical region radiating to right side. Associate with nausea. Did not move his bowels last 2 days. Normal micturition. Denies any blood in the urine or burning sensation. No fevers. No chest pain or shortness of breath. No cough. No runny nose. No headaches. Hemodynamically stable. Past medical history. None Past surgical history.Surgery for left testicular abnormal vein. Social history. Denies smoking. Alcohol occasional. No drug use. Family history. Hypertension and cancer in the family. Admission Exam Per Admitting Provider General- Not in distress Head- atraumatic Eyes- PERRL. ENT- oropharynx clear Neck- supple, no JVD. Lungs- clear to auscultation no wheezing or crackles. Heart- regular rhythm; no murmur, no gallop. Abdomen- normal bowel sounds, soft, nontender, no distension. Extremities- no pretibial edema, no erythema seen. Neuro- alert, oriented x 3; PERRL, no facial palsy; no dysarthria; moves extrem ities. Skin- warm & dry Principal Dx & Hospital Course #1 = Principal Diagnosis (1) Calculus of proximal right ureter: (2) Hydronephrosis of right kidney: (3) Obstructive uropathy: Plan Pt is a 38-year-old male with no significant past medical history admitted with R obstructive uropathy. 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 CT scan showing obstructing 7 mm RIGHT proximal ureter stone. Mild hydronephrosis of the right kidney. Underwent cystoscopy, right retrograde pyelogram with radiographic interpretation, right ureteral stent placement on 04/[address] Torre. Feeling much improved today and voiding without issue. Re-evaluated by urology today and instructed to establish with urology in [place] once home. Discussed with interpretor service that patient will need stone treatment and eventually stent removal. Discussed need to seek medical care if unable to void, if passing heavy blood clots ir if develops fever of 101F or higher, chills, nausea, or vomiting. Continuing Flomax until urology follow up as well as PRN Pyridium and Oxybutynin, alternating OTC Tylenol and Advil. 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 Patient comfortable and hemodynamically stable at time of discharge home. Discharge Exam Gen: WD/WN, NAD, laying in bed resting comfortably, A&Ox3 HEENT: Normocephalic, atraumatic, conjunctivae moist, sclerae anicteric, mucous membranes moist Lung: Clear to Auscultation bilaterally, no wheezes/rales/rhonchi Heart: Regular rate, regular rhythm, no murmurs, rubs, or gallops Abdomen: Soft, minimal R flank pain extending to CVA region, +BS x 4 Extremities: no edema Skin: Warm, no rash Updated Medication List Medication Instructions Recorded Confirmed Type oxybutynin chloride 5 mg tablet 5 mg PO BID PRN bladder spasms #10 04/05/23 Rx tabs phenazopyridine 200 mg tablet 200 mg PO Q8H PRN pain 6 doses #6 04/05/23 Rx (Pyridium) tabs tamsulosin 0.4 mg capsule 0.4 mg PO QAM #30 caps 04/05/23 Rx Hospital Stay Data Consultations 04/03/23 21:43 ED Decision to Admit Stat 04/04/23 08:00 Consult Urology Routine Procedures Performed Operation Date: 04/04/23 18:30 Actual Procedures p Cystoscopy, Right Ureteral Stent Insertion, Right Retrograde Pyelogram(Right) - Jonathan Torre MD Diagnostic Imagining Performed 04/03/23 18:05 CT abd pelvis IV con only Stat 04/04/23 FL retrograde includes kub Routine Abdomen/Pelvis CT 04/03/23 18:05 Exam(s): CT ABDOMEN + PELVIS With Contrast IV Amt: 86ml optiray 320 EXAM: CT Abdomen and Pelvis With Intravenous Contrast CLINICAL HISTORY: Reason for exam: RLQ abdominal pain. TECHNIQUE: Axial computed tomography images of the abdomen and pelvis with intravenous contrast. CTDI is 16.65 mGy and DLP is 836.55 mGy-cm. Automated exposure control was utilized for the study. A dose lowering technique was utilized adhering to the principles of ALARA. CONTRAST: Patient received 86ml optiray 320 of IV contrast COMPARISON: No relevant prior studies available. FINDINGS: Lung bases: Unremarkable. No mass. No consolidation. ABDOMEN: Liver: Unremarkable. No mass. Gallbladder and bile ducts: Unremarkable. No calcified stones. No ductal dilation. Pancreas: Unremarkable. No mass. No ductal dilation. Spleen: Unremarkable. No splenomegaly. Adrenals: Unremarkable. No mass. Kidneys and ureters: Obstructing 7 mm RIGHT proximal ureter stone. Mild hydronephrosis of the RIGHT kidney. Nonobstructing 4 mm RIGHT mid pole renal stone. Stomach and bowel: Unremarkable. No obstruction. No mucosal thickening. PELVIS: Appendix: No findings to suggest acute appendicitis. Bladder: Decompressed urinary bladder. Reproductive: Unremarkable as visualized. ABDOMEN and PELVIS: Intraperitoneal space: Unremarkable. No free air. No significant fluid collection. Bones/joints: No acute fracture. No dislocation. Soft tissues: Unremarkable. Vasculature: Unremarkable. No abdominal aortic aneurysm. Lymph nodes: Unremarkable. No enlarged lymph nodes. IMPRESSION: 1. Obstructing 7 mm RIGHT proximal ureter stone. Mild hydronephrosis of the RIGHT kidney. 2. Nonobstructing 4 mm RIGHT mid pole renal stone. Electronically signed by: Milind Howell MD 04/03/23 20:46 PM Retrograde Pyelogram 04/04/23 00:00 FL retrograde includes kub CLINICAL HISTORY: STENT IN RT SIDEright-sided hydronephrosis COMPARISON STUDY: CT 04/03/2023 FLUOROSCOPY TIME: 7.8 seconds FLUOROSCOPY IMAGES: 3 EXPOSURE DOSE: Not reported mGy FINDINGS: Proximal portion of a right ureteral stent is in satisfactory positioning. Mild persistent hydronephrosis. IMPRESSION: Fluoroscopic assistance as above. ACT 112: Negative or not required by law. Electronically signed by: Darian Kennedy M.D. 04/04/2023 6:44 PM Pending Results Patient Have Any Pending Studies at Discharge: No Discharge Instructions Given to Patient (Per Discharging Provider) MEDICATION CHANGES: Continue Flomax daily until able to follow up with urology in [place]. Continue Oxybutynin and pyridium as needed for urological pain. Instructed to alternate over the counter Tylenol and ibuprofen as needed for pain control. SUMMARY OF TEST RESULTS: You were admitted for obstructing right stone in ureter. CT scan showing obstructing 7 mm RIGHT proximal ureter stone. Mild hydronephrosis of the right kidney. Underwent cystoscopy, right retrograde pyelogram with radiographic interpretation, right ureteral stent placement on 04/[address] Torre. PENDING TEST RESULTS: None RECOMMENDATIONS FOR FOLLOW-UP: Follow up with PCP and urology once you return home in [place]. Continue medications as above. Please see section below for urology discharge instructions and importance of arranging for stent removal in [place]. OTHER INSTRUCTIONS: Seek medical attention if you have: * temperature above 101 * chest pain or trouble breathing * abdominal pain, nausea, vomiting * diarrhea, dark stools or bloody stools * any unanswered questions or concerns Call 911 if symptoms are severe. Please take good care of yourself. Call if you have any questions or problems. You can reach a [facility] hospitalist on duty at [facility] 24 hours a day by calling [phone]. Total Time Total Time Spent Total Time Spent (In Minutes): 40 Supervising Physician Co-Signing Physician Notes Pt seen and examined by myself, Gabriela Durán MD on the day of service. Care was coordinated with Marika Arora PA-C. 38yoM with right sided obstructive nephropathy s/p stent placement. 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 Initially refusing the stent placement by Urology for R sided obstructive nephropathy noted on CT since he was requesting lithotripsy instead. Pain control required narcotic use. 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 Safety concerns. With extensive discussion via collar baster, pt eventually agreed to stent placement, which occurred without complication. Advised to establish with pcp and Urology in [place] for stent removal, desired lithotripsy and further evaluation as soon as possible. Pt verbalized understanding and agreement. Pain controlled day of discharge. Otherwise as above.
--- NOTE | 2023-04-05 19:19 | Urology Progress Note ---
Date of Service April 05, 2023 Assessment & Plan (1) Calculus of proximal right ureter: (2) Acute right flank pain: (3) Hydronephrosis of right kidney: Plan -Postop day #1 status post cystoscopy and right ureteral stent placement. -Tolerating the ureteral stent with minimal bother. -Flank pain has significantly improved. -Afebrile and hemodynamically stable. -Labs reviewedno leukocytosis and normal renal function. -Okay for discharge from perspective. -We discussed that he will need to establish care with a urologist when he returns home to [place] for stone and stent management. He verbalized understanding. -Patient is aware he can contact our office with any questions or concerns. -Worrisome signs and symptoms were reviewed. -Urology will sign off. Please contact us with any further questions or concerns. Admission and Anticipated Discharge Date Admission Date: April 03, 2023 Subjective Patient examined at bedside this a.m. Awake, ambulating in room on arrival. No acute distress. Reports a significant improvement in pain following stent placement. No fevers. Review of Systems Constitutional: as per Subjective / HPI Genitourinary: + as per Subjective / HPI Physical Exam Constitutional: no acute distress Respiratory: no respiratory distress and no labored breathing Skin: No visible rashes or lesions to exposed skin areas Neurologic: moves all extremities and awake Psychiatric: A+Ox3, euthymic affect Results & Data Vital Signs (Past 12 Hours) Vital Signs Temp Pulse Resp BP BP Pulse Ox O2 Del Method 04/05/23 07:29 36.3 C L 70 16 123/71 97 Room Air 04/05/23 02:43 36.7 C 74 16 114/68 97 Room Air 04/04/23 22:30 36.6 C 71 18 118/73 98 Room Air 04/04/23 21:28 36.9 C 73 18 116/73 98 Room Air 04/04/23 20:29 36.5 C 72 18 119/75 99 Room Air 04/04/23 20:04 36.8 C 67 17 125/75 99 Room Air PG Care Time/CCT Total # of Minutes Spent Total Time Spent with Patient: Total time spent is greater than 50% in coordination of care (as documented) at patient's floor/unit and/or counseling patient: Coding Level of Care Code 58773 SUB INP/OBS CARE 1/25MIN Diagnoses Calculus of proximal right ureter N20.1 Acute right flank pain R10.9 Hydronephrosis of right kidney N13.30
== END 2023-04-05 14:06 | disposition home or self-care (01) | DRG 661 ==
LOC: ED 16:57 → EDINP 22:58 → 3E 04-04 01:22
DX: N13.2 Hydronephrosis with renal and ureteral calculous obstruction